=== PATIENT | female | born 1975 | race Caucasian/White ===

== ENCOUNTER 2024-09-13 06:07 | Day surgery (SDC) | payer OTHER ==
[~2024-09-13] VITALS: Ht 165.1 cm; Wt 98.7 kg
[~2024-09-13 06:07] MED LIST: ATOR1TAB19 PO; IBUP-1022 PO; SERT25TA21 PO
[2024-09-13] MEDS ORDERED: LR 1,000 ML IV SCH ×2 (06:15→08:50)
[2024-09-13] MEDS ORDERED: MIDAZOLAM INJ 2 MG/2 ML VIAL As Ordered ONE (07:15)
[2024-09-13] MEDS ORDERED: LIDOCAINE 2% 100 MG/5 ML SDV (FOR ANES.) As Ordered ONE (07:15)
[2024-09-13] MEDS ORDERED: ONDANSETRON 4MG 2ML VIAL As Ordered ONE (07:15)
[2024-09-13] MEDS ORDERED: dexAMETHasone 4 MG/ML 1 ML VIAL As Ordered ONE (07:16)
[2024-09-13] MEDS ORDERED: ACETAMINOPHEN 1000MG/100ML IV BAG As Ordered ONE (07:16)
[2024-09-13] MEDS: CLINDAMYCIN 900 MG in IV 1 EA IV ONE (07:41)
[2024-09-13] MEDS ORDERED: dexmedeTOMIDine (4 MCG/ML) 200 MCG/50 ML BTL As Ordered ONE (07:44)
[2024-09-13] MEDS ORDERED: KETOROLAC 30 MG/ML 1 ML VIAL As Ordered ONE (08:29)
[2024-09-13] MEDS ORDERED: diphenhydrAMINE 50 MG/ML VIAL IV PRN (08:50)
[2024-09-13] MEDS ORDERED: HYDROMORPHONE HCL 0.5 MG/0.5 ML SYRINGE IV PRN (09:00)
[2024-09-13] MEDS ORDERED: OXYC1TAB23 PO (09:03)
[2024-09-13] MEDS: HYDROMORPHONE HCL 0.5 MG/0.5 ML SYRINGE IV PRN (09:16)
[2024-09-13] MEDS ORDERED: CLEO300C2 PO (09:28)
[2024-09-13 09:45] VITALS: BP 113/67; TEMP 97.2; O2SAT 98
== END 2024-09-13 10:40 | disposition home or self-care (01) ==
LOC: M SDC 06:07
PROVIDERS: ATTEND Surgery
DX: N61.1 Abscess of the breast and nipple (principal); E78.5 Hyperlipidemia, unspecified; F17.210 Nicotine dependence, cigarettes, uncomplicated; F43.10 Post-traumatic stress disorder, unspecified; Z79.899 Other long term (current) drug therapy; Z88.0 Allergy status to penicillin; Z88.5 Allergy status to narcotic agent; Z88.1 Allergy status to other antibiotic agents
CPT/HCPCS: 10061; 87070; 87075; 87076; 87205; 88305; J0131; J0737; J1100; J1171; J1885; J2250; J2405; J2765; J3010